=== PATIENT | male | born 1975 | race Caucasian/White ===

== ENCOUNTER 2018-05-29 21:05 | Emergency (ER) | payer MEDICAID, SELFPAY ==
[2018-05-29 21:06] VITALS: BP 149/83; PULSE 74; RESP 18; TEMP 36.7; O2SAT 100; BMI 29.5
--- NOTE | 2018-05-29 21:32 | RAD_ITS ---
STUDY: X-RAY - LEFT FOOT CLINICAL: Male, 42 years old. Pain. TECHNIQUE: 3 view(s) of the foot. COMPARISON: None. FINDINGS: Normal talus, calcaneus, and tarsal bones. Normal visualized subtalar, talonavicular, calcaneocuboid, tarsal and tarsometatarsal articulations. Normal metatarsi. Normal metatarsophalangeal joint of the great toe. Normal interphalangeal joint of the great toe. Normal phalanges of the great toe. Normal second through fifth metatarsophalangeal joints. Normal interphalangeal joints and phalanges of the lesser toes. The soft tissue structures are unremarkable. RAD/Foot min 3 Views IMPRESSION: Within normal limits x-ray examination of the foot. Electronically Signed: July Bingham MD at 22:01 EDT Tel , Service support ,
--- NOTE | 2018-05-29 22:17 | ED.VISSUMM ---
- ER Visit Summary Date of Service: 05/29/18 Chief Complaint: Left foot pain History of Present Illness: The patient is a 42 M presenting for evaluation secondary to left foot pain. Patient reports that over the course of this evening he had an onset of atraumatic left foot pain. Patient states that he was cooking dinner at about 530 this evening and all of a sudden started to notice that the lateral portion of his left foot was hurting him. Patient is very active and states that he ran 2 miles today and did not really have any issues with it. Patient reports that he suffered a mechanical fall this morning, but does not specifically remember that he injured that foot. He denies any presence of fevers. He does state that he got his flu shot 1 week ago but no other injections or surgeries. Patient does not have any prior history of gout. Review of systems otherwise negative. Physical Examination: Physical exam of the left lower extremity shows normal knee calf and ankle. Patient has tenderness palpation over the midportion of the fourth and third metatarsals without any evidence of overlying skin changes warmth erythema or effusion. Normal range of motion of the toes normal capillary refill normal pulses. Test Results: 3 view of the left foot by my personal review and radiology is negative Emergency Department Course and Treatment: Patient presented secondary to atraumatic foot pain. He has no evidence of infection at this point, has no evidence of fracture or bony abnormality on x-ray, and does not really seem to have a presentation that would be consistent with a gout. Regardless, I believe the patient can be appropriately treated with a postoperative shoe and anti-inflammatories. He will be given a referral to podiatry should he not have improvement. Disposition: Discharge Impression: 1. Left foot pain This note was generated with [employer] dictation software. It may contain incorrect words, spelling, and punctuation that were not noted in review of the chart prior to signing ED Disposition - Plan for ED Patient: Disposition: Home or Assisted Living Chief Complaint: Lower Extremity Injury Diagnosis: Left foot pain Instructions: ED Sprain Foot Prescriptions: Naproxen [Naprosyn] 500 mg PO BID PRN #20 tab Referrals: Lizzeth Middleton DPM [STAFF PHYSICIAN] - 10-14 Days if not better
--- NOTE | 2018-05-29 22:21 | ED.DCSUM_ITS ---
- ER Visit Summary Date of Service: 05/29/18 Chief Complaint: Left foot pain History of Present Illness: The patient is a 42 M presenting for evaluation secondary to left foot pain. Patient reports that over the course of this evening he had an onset of atraumatic left foot pain. Patient states that he wa s cooking dinner at about 530 this evening and all of a sudden started to notice that the lateral portion of his left foot was hurting him. Patient is very active and states that he ran 2 miles today and did not really have any issues with it. Patient reports that he suffered a mechanical fall this morning, but does not specifically remember that he injured that foot. He denies any presence of fevers. He does state that he got his flu shot 1 week ago but no other injections or surgeries. Patient does not have any prior history of gout. Review of systems otherwise negative. Physical Examination: Physical exam of the left lower extremity shows normal knee calf and ankle. Patient has tenderness palpation over the midportion of the fourth and third metatarsals without any evidence of overlying skin changes warmth erythema or effusion. Normal range of motion of the toes normal capillary refill normal pulses. Test Results: 3 view of the left foot by my personal review and radiology is negative Emergency Department Course and Treatment: Patient presented secondary to atraumatic foot pain. He has no evidence of infection at this point, has no evidence of fracture or bony abnormality on x-ray, and does not really seem to have a presentation that would be consistent with a gout. Regardless, I believe the patient can be appropriately treated with a postoperative shoe and anti- inflammatories. He will be given a referral to podiatry should he not have improvement. Disposition: Discharge Impression: 1. Left foot pain This note was generated with [employer] dictation software. It may contain incorrect words, spelling, and punctuation that were not noted in review of the chart prior to signing ED Disposition - Plan for ED Patient: Disposition: Home or Assisted Living Chief Complaint: Lower Extremity Injury Diagnosis: Left foot pain Instructions: ED Sprain Foot Prescriptions: Naproxen [Naprosyn] 500 mg PO BID PRN #20 tab Referrals: Lizzeth Middleton DPM [STAFF PHYSICIAN] - 10-14 Days if not better
== END 2018-05-29 22:30 | disposition home or self-care (01) ==
PROVIDERS: Emergency Provider Emergency Medicine; Family Provider Family Medicine; PCP Family Medicine
DX: M79.672 Pain in left foot (principal)
CPT/HCPCS: 73630; 99283

== ENCOUNTER 2019-10-16 03:46 | Emergency (ER) | payer OTHER, SELFPAY ==
[2019-10-16 03:46] VITALS: BP 138/87; PULSE 57; RESP 16; TEMP 36.1; O2SAT 100; BMI 29.4
--- NOTE | 2019-10-16 03:58 | ED.DCSUM_ITS ---
History of Present Illness Chief Complaint: Back Informant: Patient Narrative: Patient stated he is having low back pain. He stated he woke up in the middle of the evening tonight with gradual onset of low back pain. It is been getting worse with time. He describes a sharp pain. Difficult to move bend or twist. He did lift weights today and felt some pain in his low back while lifting. It went away soon after he stopped doing what he was doing at the time. He did not noticing throughout the day and then this evening woke up with pain. Last Tuesday also he had some low back pain. It lasted for short period of time and then went away. He never sought treatment for it. No home treatment. Worse with movement. Relieved with resting. Difficulty getting up to walk. No history of disc herniations in his back or chronic back pain. He stated he is very active runs and lifts weights. Denies any loss of bowel or bladder function. Denies any numbness or tingling in his legs. Can move his legs but with pain exacerbated in his low back. No fevers or chills. Past Medical History - Allergies and Home Meds Allergies/Adverse Reactions: Allergies Penicillins Allergy (Verified 10/16/19 03:52) Unknown Primary Care Physician: [facility] Doctor,Out of [NON-STAFF] - Prior records reviewed: Yes Past Medical History: None Surgical History: - - Reviewed Smoking Status: Former smoker Alcohol: None Drugs: None Review of Systems General: Denies: Chills, Fever, Sweats Eyes: Denies: Visual changes - bilaterally, Diplopia ENT: Denies: Rhinorrhea, Sore throat Cardiovascular: Denies: Chest pain, Palpitations Respiratory: Denies: Dyspnea, Cough, Dyspnea on exertion Gastrointestinal: Denies: Abdominal pain, Nausea, Vomiting, Diarrhea, Melena, Hematochezia Genitourinary: Denies: Dysuria, Hematuria, Frequency Musculoskeletal: Reports: Back pain. Denies: Extremity Pain Skin: Denies: Rash, Wounds Neurological: Denies: Headache, Weakness, Numbness Physical Exam Vital Signs/Narrative: Vital Signs Temp Pulse Resp BP Pulse Ox 10/16/19 03:46 97 F L 57 L 16 138/87 H 100 General: Well nourished, Well developed, No Acute Distress Head: Normocephalic, Atraumatic Eyes: Perrl, EOMI ENT: Moist mucous membranes, No rhinorrhea Neck: Supple, Nontender Cardiovascular: Regular rate, Regular rhythm, No murmurs Respiratory: No distress, CTA bilaterally, Chest nontender Abdomen: Soft, Nontender, Nondistended, Normal bowel sounds Back: Nontender, Normal Inspection, - - Crease range of motion flexion extension and twisting secondary to pain in his low back. Extremities: Nontender, No edema Skin: Normal color, No rash Neurological: Alert, Oriented x3, Cranial nerves II-XII grossly intact, Normal Strength, Normal Sensation Psychological: Normal affect, Normal Mood Diagnostic/Tx/Re-eval - Medical Decision Making Given ice pack Toradol and morphine. Patient felt much better after treatment. He is resting comfortably. When he does sit up and then he feels pain but is much better. At this time I feel he likely has a back strain or spasm. I have a low suspicion for radiculopathy however this is possible with possible degenerative disc disease versus disc herniation. I do not think he has a cauda equina syndrome. He will be given a short course of Percocet for home and he will rest and ice and use ibuprofen as well and follow-up as an outpatient. I do not feel he needs imaging. ED Disposition - Plan for ED Patient: Disposition: Home or Assisted Living Diagnosis: Low back pain Instructions: Back Sprain/Strain Prescriptions: Oxycodone HCl/Acetaminophen [Percocet 5/325] 1 - 2 tablet PO Q6H PRN PRN 3 Days #12 tablet PRN Reason: Pain Transmission Status: Received by SARAH DAVISON-[address] [facility] Referrals: [facility] Doctor,Out of [NON-STAFF] -
[2019-10-16] MEDS: Ketorolac 30 MG/ML Syringe IM (04:06)
[2019-10-16] MEDS: Morphine 4 MG/ML Syringe 8 MG IM (04:06)
[2019-10-16 05:17] VITALS: BP 125/64; PULSE 61; RESP 16; O2SAT 99
== END 2019-10-16 05:18 | disposition home or self-care (01) ==
PROVIDERS: Emergency Provider Emergency Medicine; PCP Family Medicine
DX: M54.5 Low back pain (principal); Z87.891 Personal history of nicotine dependence
CPT/HCPCS: 96372; 99284